=== PATIENT | male | born 1970 | race Hispanic/Latino ===

== ENCOUNTER 2021-06-01 12:53 | Outpatient (CLI) | payer BC ==
[2021-06-01 15:07] LABS: Bilirubin Neg (Negative); Blood, Urine Negative (Negative); Clarity Clear (Clear); Glucose, Urine (Dipstick) Normal (Negative); Ketone, Urine Negative (Negative); Leukocyte Negative (Negative); Nitrite Negative (Negative); Protein, Urine (Dipstick) Negative (Neg-Trace)
[2021-06-01 15:08] LABS: Hemoglobin 14.9 g/dL (13.5-17.5); Mean Corpuscular HGB CONC 33.3 g/dL (32.0-36.0); Mean Corpuscular Hemoglobin 30.2 pg (27.0-33.0); Mean Corpuscular Volume 90.7 fl (81.2-95.1); Mean Platelet Volume 12.5 fl (7.4-10.4); Platelet Count 214 10x3/uL (150-450); Red Blood Cell (RBC) Count 4.93 10x6/uL (4.32-5.72); White Blood Cell (WBC) Count 6.7 10x3/uL (3.5-10.5)
[2021-06-01 15:22] LABS: PTT 28.5 sec (22.0-33.0); Prothrombin Time 11.3 sec (9.5-12.1)
[2021-06-01 15:28] LABS: Anion Gap 12 mmol/L (10-20); BUN (Urea Nitrogen) 14 mg/dL (8.9-20.6); Calc. Creatinine Clearance 0 mL/min (70-130); Calcium 9.6 mg/dL (7.8-10.44); Carbon Dioxide 29 mmol/L (22-29); Chloride 104 mmol/L (98-107); Glucose 87 mg/dL (70-105); Potassium 4.2 mmol/L (3.5-5.1); Sodium 141 mmol/L (136-145)
[2021-06-01 15:30] LABS: RBC/HPF None Seen HPF (0-3)
[2021-06-02 13:28] LABS: SARS-CoV-2 PCR by NAA Not Detected (NotDetected)
== END 2021-06-01 12:54 | disposition home or self-care (01) ==
LOC: LABBT 12:53
PROVIDERS: ATTEND Urology
DX: Z01.818 Encounter for other preprocedural examination (principal); N35.919 Unspecified urethral stricture, male, unspecified site; Z20.822 Contact with and (suspected) exposure to COVID-19
CPT/HCPCS: 80048; 81001; 85027; 85610; 85730; 87086; 93005; 93010; U0003; U0005

== ENCOUNTER 2021-06-04 08:54 | Day surgery (SDC) | payer BC ==
[2021-06-03 10:54] VITALS: BMI 27.7
[2021-06-04] MEDS ORDERED: Levofloxacin 500 mg/D5W 100 ml Premix Bag ONE (09:48)
[2021-06-04] MEDS ORDERED: Triamcinolone 40 MG/ML VIAL ONE (10:55)
[2021-06-04] MEDS ORDERED: Fentanyl 100 MCG/2 ML VIAL ONE (10:57)
[2021-06-04] MEDS ORDERED: Propofol 500 MG/50 ML VIAL ONE (11:11)
[2021-06-04] MEDS ORDERED: Lidocaine 1% PF 5 ML VIAL ONE (11:20)
[2021-06-04] MEDS ORDERED: Gentamicin Sulfate 80 MG in Premix Bag 1 BAG IVPB SCH (12:30)
== END 2021-06-04 13:23 | disposition home or self-care (01) ==
LOC: SDC 08:54
PROVIDERS: ATTEND Urology
PROC: 0T7D7ZZ Dilation of Urethra, Via Natural or Artificial Opening (ICD-10-PCS; principal; 2021-06-04)
DX: N35.811 Other urethral stricture, male, meatal (principal); N40.0 Benign prostatic hyperplasia without lower urinary tract symptoms; Z98.890 Other specified postprocedural states
CPT/HCPCS: J1580; J1956; J2704; J3010; J3301